=== PATIENT | male | born 1965 | race Caucasian/White ===

== ENCOUNTER 2016-08-05 15:10 | Inpatient (IN) | payer OTHER ==
[~2016-08-05] VITALS: Ht 172.7 cm; Wt 79.3 kg
[~2016-08-05 15:10] MED LIST: ASPI-621 PO; ATOR80TA75 PO; FLUT1DIS5 IH; LISI5TAB7 PO; METO25TA35 PO; NITR0.4T8 SL; TICA90TA PO
[2016-08-05] MEDS ORDERED: SODIUM CHLORIDE FLUSH 10ML SYR IVF ONE (15:30)
[2016-08-05 16:04] LABS: ASPARTATE AMINO TRANSFERASE 27 U/L (15-37); BLOOD UREA NITROGEN 21 mg/dL (7-18)
[2016-08-05 16:11] LABS: IS PT STATUS REG ER OR PRE ER? YES
[2016-08-05] MEDS ORDERED: ENOXAPARIN 40 MG/0.4 ML SQ SCH (17:00)
[2016-08-05] MEDS ORDERED: MORPHINE SULFATE 4 MG/ML, 1ML IVPush PRN (17:00)
[2016-08-05] MEDS ORDERED: NITROGLYCERIN 0.4 MG BOTTLE (25 TABS) SL PRN (17:00)
[2016-08-05] MEDS ORDERED: HYDROcodone/APAP 5/325 TABLET PO PRN (17:00)
[2016-08-05] MEDS ORDERED: LABETALOL 5MG/ML 40ML VIAL IVPush PRN (17:00)
[2016-08-05] MEDS ORDERED: ACETAMINOPHEN 325 MG TABLET PO PRN (17:00)
[2016-08-05] MEDS ORDERED: DOCUSATE 100 MG CAPSULE PO PRN (17:00)
[2016-08-05] MEDS ORDERED: ONDANSETRON 2MG/ML, 2ML IVPush PRN (17:00)
[2016-08-05] MEDS ORDERED: BISACODYL 10 MG SUPP PR PRN (17:00)
[2016-08-05] MEDS ORDERED: POLYETHYLENE GLYCOL 17 GM PACKET PO PRN (17:00)
[2016-08-05] MEDS ORDERED: ENOXAPARIN 40 MG/0.4 ML ONE (17:22)
[2016-08-05 17:57] LABS: IS PT STATUS REG ER OR PRE ER? YES
[2016-08-05 18:15] VITALS: BP 105/71
[2016-08-05 20:45] VITALS: BP 119/68
[2016-08-05] MEDS: TICAGRELOR 90 MG TABLET PO SCH (20:49)
[2016-08-05] MEDS: METOPROLOL TARTRATE 25 MG TABLET PO SCH (20:49)
[2016-08-05] MEDS ORDERED: ATORVASTATIN 80 MG TABLET PO SCH (21:00)
[2016-08-05] MEDS: SODIUM CHLORIDE FLUSH 3ML SYRINGE IVF SCH (21:00)
[2016-08-05 23:09] LABS: IS PT STATUS REG ER OR PRE ER? NO
[2016-08-06 04:00] VITALS: BP 114/68
[2016-08-06 05:37] LABS: BLOOD UREA NITROGEN 20 mg/dL (7-18)
[2016-08-06] MEDS: TICAGRELOR 90 MG TABLET PO SCH (05:47)
[2016-08-06] MEDS ORDERED: ASPIRIN 325 MG TABLET EC PO SCH (06:00)
[2016-08-06 07:31] VITALS: BP 97/64
[2016-08-06] MEDS: METOPROLOL TARTRATE 25 MG TABLET PO SCH (08:48)
[2016-08-06] MEDS: SODIUM CHLORIDE FLUSH 3ML SYRINGE IVF SCH (08:48)
[2016-08-06] MEDS ORDERED: LISINOPRIL 5 MG TABLET PO SCH (09:00)
[2016-08-06] MEDS ORDERED: REGADENOSON 0.4 MG/5 ML SYRINGE ONE (10:42)
[2016-08-06 12:47] VITALS: BP 131/80
[2016-08-06] MEDS ORDERED: CLOP75TA22 PO (13:52)
== END 2016-08-06 16:54 | disposition home or self-care (01) | DRG 204 ==
LOC: ED 15:52 → EDIP 16:38 → 5SO 18:22 → DCLOUNGE 08-06 16:33
PROVIDERS: ADMIT Internal Medicine; ATTEND Internal Medicine
DX: R06.02 Shortness of breath (principal); T45.525A Adverse effect of antithrombotic drugs, initial encounter; I25.10 Atherosclerotic heart disease of native coronary artery without angina pectoris; E78.5 Hyperlipidemia, unspecified; R73.9 Hyperglycemia, unspecified; I25.2 Old myocardial infarction; Z79.82 Long term (current) use of aspirin; Z79.899 Other long term (current) drug therapy; Z87.891 Personal history of nicotine dependence; Y92.89 Other specified places as the place of occurrence of the external cause; Z95.5 Presence of coronary angioplasty implant and graft
CPT/HCPCS: 36415; 71010; 78452; 80048; 80053; 80061; 83880; 84484; 85025; 85610; 93005; 93017; 96372; J1650; J2785; A9502; C9898

== ENCOUNTER → 2017-01-03 | Outpatient (CLI) | payer OTHER ==
[~2017-01-03] MED LIST changes: +ATOR-2 PO; -ATOR80TA75 PO; +CLOP75TA52 PO; +NITR0.4T28 SL; -NITR0.4T8 SL
== END | disposition home or self-care (01) ==
LOC: CFH 13:07
PROVIDERS: ATTEND Internal Medicine Cardiovascular Disease
DX: I08.0 Rheumatic disorders of both mitral and aortic valves (principal); I70.0 Atherosclerosis of aorta; I10 Essential (primary) hypertension; I21.3 ST elevation (STEMI) myocardial infarction of unspecified site; E78.5 Hyperlipidemia, unspecified; Z87.891 Personal history of nicotine dependence
CPT/HCPCS: 93306